=== PATIENT | female | born 1955 | race Caucasian/White ===

== ENCOUNTER 2023-01-20 08:03 | Day surgery (SDC) | payer MEDICARE ==
[~2023-01-20 08:03] MED LIST: Ak-Dilate OPHTHALMIC*** 1.065 ML, Cyclogyl 1% OPHTH SOL 1.065 ML, GATIFLOXACIN 0.5% OPH... OP ONE; BETADINE 5% OPHTHALMIC 30 ML OP ONE; Lactated Ringers 1,000 ML IV SCH; NON-FORMULARY ITEM OP ONE; TETRACAINE 0.5% STERI-UNIT SOL OP ONE; cefUROXime sodium 0.005 GM in Sodium Chloride Flush 30 ML*** 0.5 ML IJ ONE
[2023-01-20] MEDS ORDERED: Lactated Ringers 1,000 ML IV ONE (08:24)
[2023-01-20] MEDS ORDERED: Epinephrine Preservative Free 1 MG/ML IJ ONE (09:00)
[2023-01-20] MEDS ORDERED: Versed 2 MG/2 ML Injection ONE (10:23)
[2023-01-20] MEDS ORDERED: DIPRIVAN 200 MG/20 ML IV ONE (10:23)
[2023-01-20] MEDS ORDERED: SUBLIMAZE 100 MCG/2 ML ONE (10:23)
[2023-01-20] MEDS ORDERED: Xylocaine-Mpf 2% 5 Ml Vial ONE (10:23)
[2023-01-20] MEDS ORDERED: ACETAZOLAMIDE 250 MG TABLET PO ONE (11:00)
[2023-01-20] MEDS ORDERED: Zofran 4 MG/2 ML VIAL IV PRN (11:00)
[2023-01-20 11:26] VITALS: TEMP 97.2; O2SAT 98
[2023-01-20 11:35] VITALS: BP 139/60; PULSE 84; RESP 18
== END 2023-01-20 11:37 | disposition home or self-care (01) ==
LOC: SDC 08:03
PROVIDERS: ATTEND Ophthalmology
DX: H25.811 Combined forms of age-related cataract, right eye (principal)
CPT/HCPCS: C1780; J0171; J2250; J2704; J3010; A9270-GY

== ENCOUNTER 2023-02-22 10:14 | Day surgery (SDC) | payer MEDICARE ==
[2023-02-22] MEDS ORDERED: Lactated Ringers 1,000 ML IV ONE (10:23)
[2023-02-22] MEDS ORDERED: DIPRIVAN 200 MG/20 ML IV ONE (11:25)
[2023-02-22 11:53] VITALS: RESP 20; TEMP 98.2
[2023-02-22] MEDS ORDERED: Zofran 4 MG/2 ML VIAL IV PRN (12:00)
[2023-02-22] MEDS ORDERED: ACETAZOLAMIDE 250 MG TABLET PO ONE (12:00)
[2023-02-22 12:02] VITALS: PULSE 91; O2SAT 96
[2023-02-22 12:06] VITALS: BP 163/87
== END 2023-02-22 12:20 | disposition home or self-care (01) ==
LOC: SDC 10:14
PROVIDERS: ATTEND Ophthalmology
DX: H25.812 Combined forms of age-related cataract, left eye (principal)
CPT/HCPCS: C1780; J2704; A9270-GY

== ENCOUNTER 2023-05-20 16:17 | Emergency (ER) | payer MEDICARE ==
--- NOTE | 2023-05-20 16:24 | ERPHSYRPT ---
- History of Present Illness Time Seen by Provider: 05/20/23 16:24 Source: patient, family, other (Patient's nurse practitioner provided independent, additional history.) Exam Limitations: no limitations Physician History: This is a 68-year-old white female patient who continues to smoke cigarettes daily and is a patient Dr. Bansal. Patient went to urgent care to discuss her dry lips. At that visit, the patient was found to be in sinus tachycardia in the 120s. A twelve-lead EKG was performed which showed a heart rate of 116 bpm. Patient does have a history of hypertension, COPD and supposed to coronary artery disease. Patient is not on any anticoagulation therapy. She is supposed to follow-up with a fixed wing pilot for the possibility of having stents placed. Patient is very hard of hearing. Patient denies chest pain. Patient denies shortness of breath. Patient underwent right hip replacement 6 months ago. Timing/Duration: today Severity: mild Associated Symptoms: denies symptoms Allergies/Adverse Reactions: No Known Drug Allergies Allergy (Verified 02/15/23 08:28) Home Medications: Lisinopril 10 mg [Zestril 10 MG] 10 mg PO DAILY 01/11/23 [History] Metoprolol Succinate 50 mg [Toprol Xl 50 MG] 100 mg PO DAILY 01/11/23 [History] Nicotine [Nicotine Patch] 1 each TD DAILY 05/20/23 [History] Travel Risk - International Travel Have you traveled outside of the country in past 3 weeks: No - Coronavirus Screening Are you exhibiting any of the following symptoms?: No Close contact with a COVID-19 positive Pt in past 14-21 Days: No - Review of Systems Constitutional: No Symptoms Eyes: No Symptoms Ears, Nose, & Throat: No Symptoms Respiratory: No Symptoms Cardiac: Palpitations Abdominal/Gastrointestinal: No Symptoms Genitourinary Symptoms: No Symptoms Musculoskeletal: No Symptoms Skin: No Symptoms Neurological: No Symptoms Psychological: No Symptoms Endocrine: No Symptoms Hematologic/Lymphatic: No Symptoms Immunological/Allergic: No Symptoms All Other Systems: Reviewed and Negative - Past Medical History Pertinent Past Medical History: Yes Neurological History: No Pertinent History ENT History: Cataracts Cardiac History: Hypertension, Myocardial Infarction (MD) Respiratory History: COPD Endocrine Medical History: No Pertinent History Musculoskeletal History: No Pertinent History GI Medical History: No Pertinent History History: No Pertinent History Psycho-Social History: No Pertinent History Female Reproductive Disorders: No Pertinent History Other Medical History: hearing diffculty, - Past Surgical History Past Surgical History: Yes Neuro Surgical History: No Pertinent History Cardiac: No Pertinent History Respiratory: No Pertinent History Gastrointestinal: No Pertinent History Genitourinary: No Pertinent History Musculoskeletal: Orthopedic Surgery Female Surgical History: No Pertinent History Other Surgical History: right hip and rods, 2-knee surgerys - Social History Smoking Status: Current every day smoker How long have you smoked: 40 yrs Exposure to second hand smoke: No Drug Use: none - Nursing Vital Signs Nursing Vital Signs: Initial Vital Signs Temperature 98.3 F 05/20/23 16:29 Pulse Rate 99 H 05/20/23 16:29 Respiratory Rate 20 05/20/23 16:29 Blood Pressure 174/81 05/20/23 16:29 O2 Sat by Pulse Oximetry 96 05/20/23 16:29 Pain Scale Pain Intensity 0 - Physical Exam General Appearance: no apparent distress, alert, anxiety, thin Eye Exam: PERRL/EOMI, eyes nml inspection Ears, Nose, Throat Exam: normal ENT inspection, moist mucous membranes Neck Exam: normal inspection, non-tender, supple, full range of motion Respiratory Exam: normal breath sounds, lungs clear, airway intact, No chest tenderness, No respiratory distress Cardiovascular Exam: regular rate/rhythm, normal heart sounds, normal peripheral pulses Gastrointestinal/Abdomen Exam: soft, normal bowel sounds, No tenderness Pelvic Exam: not done Rectal Exam: not done Back Exam: normal inspection, normal range of motion, No CVA tenderness, No vertebral tenderness Extremity Exam: normal inspection, normal range of motion, pelvis stable Neurologic Exam: alert, oriented x 3, cooperative, computer application developer II-XII nml as tested, normal mood/affect, nml cerebellar function, nml station & gait, sensation nml Skin Exam: normal color, warm, dry Lymphatic Exam: No adenopathy SpO2 Interpretation: normal O2 Delivery: Room Air - Course Nursing assessment & vital signs reviewed: Yes EKG Interpreted by Me: RATE (116), Sinus Tach, Right Hartshorne Deviation, NORMAL INTERVALS, NORMAL QRS, Other (No acute ischemia on today's twelve-lead EKG. No comparison twelve-lead EKG available) Ordered Tests: Active Orders 24 hr Category Date Time Status IV Insertion STAT Care 05/20/23 16:54 Active Pulse Oximetry (ED) STAT Care 05/20/23 16:54 Active CHEST WITH CONTRAST [CT] Stat Exams 05/20/23 18:11 Taken CBC W DIFF Stat Lab 05/20/23 16:54 Completed CMP Stat Lab 05/20/23 16:40 Completed D-DIMER QUANTITATIVE Stat Lab 05/20/23 16:40 Completed MAGNESIUM Stat Lab 05/20/23 16:40 Completed NT PRO BNPII Stat Lab 05/20/23 16:40 Completed TROPONIN Q4H Lab 05/20/23 16:40 Completed TROPONIN Q4H Lab 05/20/23 21:00 Ordered TROPONIN Q4H Lab 05/21/23 01:00 Ordered TSH, 3RD Generation Stat Lab 05/20/23 16:40 Completed UA W/RFX UR CULTURE Stat Lab 05/20/23 17:31 Completed Medication Summary Discontinued Medications Generic Name Dose Route Start Last Admin Trade Name Freq PRN Reason Stop Dose Admin Cephalexin HCl 500 mg 05/20/23 20:22 05/20/23 20:48 Cephalexin 500 Mg Capsule PO 05/20/23 20:23 500 mg STAT ONE Administration Sodium Chloride 1,000 mls @ 999 mls/hr 05/20/23 16:54 05/20/23 18:49 Sodium Chloride 0.9% 1000 Ml IV 05/20/23 17:54 Infused .Q1H1M STA Infusion Sodium Chloride Confirm 05/20/23 16:58 Sodium Chloride 0.9% 1000 Ml Administered 05/20/23 16:59 Dose 1,000 mls @ ud .ROUTE .STK-MED ONE Lab/Rad Data: Laboratory Result Diagrams 05/20/23 16:54 05/20/23 16:40 Laboratory Results 05/20/23 05/20/23 05/20/23 Range/Units 17:31 16:54 16:40 WBC 6.9 (4.0-10.5) x10^3/uL RBC 4.68 (4.1-5.4) x10^6/uL Hgb 13.8 (12.0-16.0) g/dL Hct 42.5 (35-47) % MCV 90.8 (78-100) fL MCH 29.5 (26-32) pg MCHC 32.5 (32-36) g/dL RDW 12.8 (11.5-14.0) % Plt Count 318 (150-450) x10^3/uL MPV 9.2 (7.5-11.0) fL Gran % 69.2 H (36.0-66.0) % Immature Gran % (Auto) 0.3 (0.00-0.4) % Nucleat RBC Rel Count 0.0 (0.00-0.1) % Eos # (Auto) 0.05 (0-0.5) x10^3/uL Immature Gran # (Auto) 0.02 (0.00-0.03) x10^3u/L Absolute Lymphs (auto) 1.33 (1.0-4.6) x10^3/uL Absolute Monos (auto) 0.67 (0.0-1.3) x10^3/uL Absolute Nucleated RBC 0.00 (0.00-0.01) x10^3u/L Lymphocytes % 19.4 L (24.0-44.0) % Monocytes % 9.8 (0.0-12.0) % Eosinophils % 0.7 (0.00-5.0) % Basophils % 0.6 (0.0-0.4) % Absolute Granulocytes 4.76 (1.4-6.9) x10^3/uL Basophils # 0.04 (0-0.4) x10^3/uL D-Dimer (0.0-0.50) mg/L Sodium (135-145) mmol/L Potassium (3.5-5.1) mmol/L Chloride (98-107) mmol/L Carbon Dioxide (22-30) mmol/L Anion Gap (5-15) MEQ/L BUN (7-17) mg/dL Creatinine (0.52-1.04) mg/dL Estimated GFR ML/MIN Glucose (74-106) mg/dL Calcium (8.4-10.2) mg/dL Magnesium (1.6-2.3) mg/dL Total Bilirubin (0.2-1.3) mg/dL AST (14-36) U/L ALT (0-35) U/L Alkaline Phosphatase (38-126) U/L Troponin I < 0.012 (0.000-0.034) ng/mL NT-Pro-B Natriuret Pep (<300) pg/mL Serum Total Protein (6.3-8.2) g/dL Albumin (3.5-5.0) g/dL TSH 3rd Generation (0.47-4.68) mIU/L Urine Color Yellow (Yellow) Urine Appearance Clear (Clear) Urine pH 6.5 (4.6-8.0) Ur Specific [place] 1.010 (1.005-1.030) Urine Protein Negative (Negative) Urine Glucose (UA) Negative (Negative) mg/dL Urine Ketones Negative (Negative) Urine Blood Negative (Negative) Urine Nitrite Negative (Negative) Urine Bilirubin Negative (Negative) Urine Urobilinogen 0.2 (0.2) mg/dL Ur Leukocyte Esterase Small A (Negative) U Hyaline Cast (Auto) NONE SEEN (0-2) /LPF Urine Microscopic RBC 0-2 (0-5) /HPF Urine Microscopic WBC 6-10 A (0-5) /HPF Ur Epithelial Cells None Seen (None Seen) /HPF Urine Bacteria None Seen (None Seen) /HPF Urine Culture Reflexed NO (NO) 05/20/23 05/20/23 Range/Units 16:40 16:40 WBC (4.0-10.5) x10^3/uL RBC (4.1-5.4) x10^6/uL Hgb (12.0-16.0) g/dL Hct (35-47) % MCV (78-100) fL MCH (26-32) pg MCHC (32-36) g/dL RDW (11.5-14.0) % Plt Count (150-450) x10^3/uL MPV (7.5-11.0) fL Gran % (36.0-66.0) % Immature Gran % (Auto) (0.00-0.4) % Nucleat RBC Rel Count (0.00-0.1) % Eos # (Auto) (0-0.5) x10^3/uL Immature Gran # (Auto) (0.00-0.03) x10^3u/L Absolute Lymphs (auto) (1.0-4.6) x10^3/uL Absolute Monos (auto) (0.0-1.3) x10^3/uL Absolute Nucleated RBC (0.00-0.01) x10^3u/L Lymphocytes % (24.0-44.0) % Monocytes % (0.0-12.0) % Eosinophils % (0.00-5.0) % Basophils % (0.0-0.4) % Absolute Granulocytes (1.4-6.9) x10^3/uL Basophils # (0-0.4) x10^3/uL D-Dimer 0.93 H* (0.0-0.50) mg/L Sodium 138 (135-145) mmol/L Potassium 4.4 (3.5-5.1) mmol/L Chloride 104 (98-107) mmol/L Carbon Dioxide 27 (22-30) mmol/L Anion Gap 10.9 (5-15) MEQ/L BUN 18 H (7-17) mg/dL Creatinine 0.56 (0.52-1.04) mg/dL Estimated GFR 98.1 ML/MIN Glucose 100 (74-106) mg/dL Calcium 9.3 (8.4-10.2) mg/dL Magnesium 1.9 (1.6-2.3) mg/dL Total Bilirubin 0.30 (0.2-1.3) mg/dL AST 24 (14-36) U/L ALT 25 (0-35) U/L Alkaline Phosphatase 127 H (38-126) U/L Troponin I (0.000-0.034) ng/mL NT-Pro-B Natriuret Pep 552 (<300) pg/mL Serum Total Protein 8.2 (6.3-8.2) g/dL Albumin 4.1 (3.5-5.0) g/dL TSH 3rd Generation 2.490 (0.47-4.68) mIU/L Urine Color (Yellow) Urine Appearance (Clear) Urine pH (4.6-8.0) Ur Specific [place] (1.005-1.030) Urine Protein (Negative) Urine Glucose (UA) (Negative) mg/dL Urine Ketones (Negative) Urine Blood (Negative) Urine Nitrite (Negative) Urine Bilirubin (Negative) Urine Urobilinogen (0.2) mg/dL Ur Leukocyte Esterase (Negative) U Hyaline Cast (Auto) (0-2) /LPF Urine Microscopic RBC (0-5) /HPF Urine Microscopic WBC (0-5) /HPF Ur Epithelial Cells (None Seen) /HPF Urine Bacteria (None Seen) /HPF Urine Culture Reflexed (NO) - Progress Progress: improved, re-examined Progress Note: 05/20/23 17:46 This patient's medical issue is 1 of moderate complexity. The level complexity in the workup performed is based on review of the patient's past medical history, review of the patient's medication list, review the patient drug allergy list, history of present illness and physical findings on examination. This patient's workup includes placement of intravenous line, bolus of normal saline solution, twelve-lead EKG, PT/INR, D-dimer, BNP, troponin level and urinalysis. 05/20/23 20:21 Laboratory data results were interpreted by me. The patient has a mild urinary tract infection as well and has an elevated D-dimer level. We will treat her urinary tract infection with Keflex orally. I ordered a CT scan of the chest with contrast to evaluate for pulmonary embolism. 05/20/23 20:48 CT scan of the chest with contrast was interpreted by the radiologist and I reviewed the impression. The impression states negative for pulmonary embolus. There is advanced emphysema present. Nothing acute Counseled pt/family regarding: lab results, diagnosis, need for follow-up, rad results Medical Desision Making - Diagnostic Testing Diagnostic test were ordered, analyzed, and reviewed by me: Yes Radiological Interpretation: Reviewed by me, Teleradiologist Report - Risk of complications The pt has a mod risk of morbidity or mortality based on: Need for prescription drug management - Departure Departure Disposition: Home Clinical Impression: Urinary tract infection, Sinus tachycardia Condition: Stable Critical Care Time: No Referrals: FLORIDALMA BANSAL DO [Primary Care Provider] - Follow up/PCP as directed Additional Instructions: Drink plenty fluids. Take antibiotics and other medication as prescribed. Call your primary care provider and your fixed wing pilot on 05/23/2023 to make arrangements for follow-up appointment for further evaluation management in the next 3 to 5 days.
[2023-05-20 16:35] VITALS: TEMP 98.3
[2023-05-20] MEDS ORDERED: Sodium Chloride 0.9% 1000 ML 1,000 ML ONE (16:58)
[2023-05-20] MEDS: Sodium Chloride 0.9% 1000 ML 1,000 ML IV STA (16:59)
[2023-05-20 17:08] LABS: Absolute Neutrophil Ct (ANC) 4.76 x10^3/uL (1.4-6.9); BASOPHIL % 0.6 % (0.0-0.4); Basophil (Absolute #) 0.04 x10^3/uL (0-0.4); Eosinophil % 0.7 % (0.00-5.0); Eosinophil (Absolute #) 0.05 x10^3/uL (0-0.5); Hematocrit 42.5 % (35-47); Hemoglobin 13.8 g/dL (12.0-16.0); IMMATURE GRAN # 0.02 x10^3u/L (0.00-0.03); IMMATURE GRAN % 0.3 % (0.00-0.4); Lymphocyte (Absolute #) 1.33 x10^3/uL (1.0-4.6); Lymphocytes % 19.4 % (24.0-44.0); Mean Cell Volume 90.8 fL (78-100); Mean Corpuscular Hemoglobin 29.5 pg (26-32); Mean Corpuscular Hgb Concent. 32.5 g/dL (32-36); Mean Platelet Volume 9.2 fL (7.5-11.0); Monocyte (Absolute #) 0.67 x10^3/uL (0.0-1.3); Monocytes % 9.8 % (0.0-12.0); Neutrophil % 69.2 % (36.0-66.0); Platelet Count 318 x10^3/uL (150-450); Red Blood Count 4.68 x10^6/uL (4.1-5.4); Red Cell Distribution Width 12.8 % (11.5-14.0); White Blood Count 6.9 x10^3/uL (4.0-10.5)
[2023-05-20 17:52] LABS: ALBUMIN 4.1 g/dL (3.5-5.0); ANION GAP 10.9 MEQ/L (5-15); BILIRUBIN,TOTAL 0.3 mg/dL (0.2-1.3); Calcium 9.3 mg/dL (8.4-10.2); Creatinine 1 0.56 mg/dL (0.52-1.04); EST GLOMERULAR FILTRATION RATE 98.1 ML/MIN; MAGNESIUM 1.9 mg/dL (1.6-2.3); Potassium 4.4 mmol/L (3.5-5.1); TSH, 3RD Generation 2.49 mIU/L (0.47-4.68); Total Protein 8.2 g/dL (6.3-8.2)
[2023-05-20 19:20] LABS: Appearance Clear (Clear); Bacteria None Seen /HPF (None Seen); Bilirubin Negative (Negative); Blood Negative (Negative); Epithelial Cells None Seen /HPF (None Seen); Glucose, Urine Negative (Negative); Hyaline Casts NONE SEEN /LPF (0-2); Ketones Negative (Negative); Leukocyte Esterase Small (Negative); Nitrite Negative (Negative); Ph 6.5 (4.6-8.0); Protein,Urine Dip Negative (Negative); RBC 0-2 /HPF (0-5); Urobilinogen 0.2 mg/dL (0.2)
[2023-05-20 19:32] LABS: ADD URINE CULTURE? NO (NO)
[2023-05-20] MEDS ORDERED: KEFLEX 500 MG ONE (20:46)
[2023-05-20] MEDS: KEFLEX 500 MG PO ONE (20:48)
[2023-05-20 21:06] VITALS: BP 161/81; PULSE 84; RESP 10; O2SAT 95
--- NOTE | 2023-05-20 21:26 | XRAY ---
Indication: Chest pain. Multiple contiguous axial images obtained through the chest using 80 cc Isovue 370 contrast and PE protocol. Comparison: None Good opacification pulmonary arteries to include lobar and segmental branches. No pulmonary embolus. Heart not enlarged with scattered coronary calcifications. Aorta is mildly arteriosclerotic without aneurysm/dissection. No pathologic mediastinal/hilar lymphadenopathy. Lungs demonstrates advanced diffuse pulmonary emphysema. No suspicious pulmonary mass/nodule, infiltrate, or effusion. Bony thorax intact with osteopenia and minimal degenerative changes throughout the spine. Limited upper abdomen demonstrates hepatic/splenic aspect granulomas. Impression: 1. Negative pulmonary embolus. No acute cardiopulmonary abnormalities. 2. Chronic findings including pulmonary emphysema, arteriosclerotic disease, chronic bony findings, and old granulomatous disease.
== END 2023-05-20 21:40 | disposition home or self-care (01) ==
LOC: ED 16:17
DX: N39.0 Urinary tract infection, site not specified (principal); R00.0 Tachycardia, unspecified; I10 Essential (primary) hypertension; Z79.899 Other long term (current) drug therapy; Z72.0 Tobacco use
CPT/HCPCS: 36000; 36415; 71260; 80053; 81001; 83735; 83880; 84443; 84484; 85025; 85379; 94760; 96360; 99284; A9270-GY